=== PATIENT | female | born 1990 | race American Indian/Alaskan Native ===

== ENCOUNTER 2017-03-11 04:10 | Inpatient (IN) | payer MEDICAID ==
[2017-03-11] MEDS ORDERED: PITOCin/NS 20 UNIT/1000ML DRIP 20,000 MILLIUNITS/1,000 ML BAG IV ONE (04:38)
[2017-03-11] MEDS ORDERED: ePHEDrine SULFATE IV PRN (04:49)
[2017-03-11] MEDS ORDERED: MINERAL OIL PO PRN (04:49)
[2017-03-11] MEDS ORDERED: BRETHINE SUB-Q PRN (04:49)
[2017-03-11] MEDS ORDERED: BRETHINE IVP PRN (04:49)
[2017-03-11] MEDS ORDERED: XYLOCAINE 2% INFILTRATI ONE (04:49)
[2017-03-11] MEDS ORDERED: ZOFRAN IV PRN ×2 (04:49→04:57)
[2017-03-11] MEDS ORDERED: LANSINOH TP PRN (04:57)
[2017-03-11] MEDS ORDERED: PHENERGAN PR PRN (04:57)
[2017-03-11] MEDS ORDERED: DULCOLAX PR PRN (04:57)
[2017-03-11] MEDS ORDERED: TUCKS PAD TP PRN (04:57)
[2017-03-11] MEDS ORDERED: TYLENOL PO PRN (04:57)
[2017-03-11] MEDS ORDERED: MILK OF MAGNESIA PO PRN (04:57)
[2017-03-11] MEDS ORDERED: BENADRYL PO PRN (04:57)
[2017-03-11] MEDS ORDERED: PHENERGAN PO PRN (04:57)
[2017-03-11] MEDS ORDERED: PITOCin/NS 30 UNIT/500ML 30 UNITS/500 ML BAG IV SCH (05:00)
[2017-03-11] MEDS ORDERED: PITOCin/NS 20 UNIT/1000ML DRIP 20 UNITS/1,000 ML BAG IV SCH ×2 (05:00)
[2017-03-11] MEDS ORDERED: PITOCin/NS 20 UNIT/1000ML DRIP IV ONE (05:00)
[2017-03-11] MEDS ORDERED: SODIUM CHLORIDE FLUSH SYRINGE 10 ML IV NR (05:00)
[2017-03-11] MEDS ORDERED: LACTATED RINGERS 1,000 ML IV SCH (05:00)
--- NOTE | 2017-03-11 05:06 | History and Physical Report ---
History of Present Illness Date of examination: 03/11/17 Date of admission: 03/11/17 04:23 Chief complaint: Labor History of present illness: Pt is a 26yo BF EDC 03/21/17; EGA 38 4/7 weeks presents to L&D complaining of RUC's q 2-3 mins. Cx /V/0 She has not had any regular care and recently moved to [place]. Past History Past Medical History: no pertinent history Past Surgical History: no surgical history Family/Genetic History: none Social history: no significant social history, single - Obstetrical History Expected Date of Delivery: 03/21/17 Actual Gestation: 38 Week(s) 4 Day(s) Medications and Allergies Allergies Allergy/AdvReac Type Severity Reaction Status Date / Time No Known Drug Allergies Allergy Unknown Verified 03/11/17 05:05 Home Medications Medication Instructions Recorded Confirmed Last Taken Type No Known Home Medications [No 03/11/17 03/11/17 Unknown History Reported Home Medications] Active Meds: Active Medications Acetaminophen (Tylenol) 650 mg PO Q4H PRN PRN Reason: Pain MILD(1-3)/Fever >100.5/HANNAH Acetaminophen/Hydrocodone Bitart ([place] 5/325) 2 each PO Q6H PRN PRN Reason: Pain, Moderate (4-6) Bisacodyl (Dulcolax) 10 mg AL BID PRN PRN Reason: Constipation Diphenhydramine HCl (Benadryl) 25 mg PO Q6H PRN PRN Reason: Itching Diphtheria/Tetanus/Acell Pertussis (Boostrix) 0.5 ml IM .ONCE ONE Stop: 03/12/17 04:58 Docusate Sodium (Colace) 100 mg PO BID KATELYN Ephedrine Sulfate (Ephedrine Sulfate) 10 mg IV Q2M PRN PRN Reason: Hypotension Stop: 03/11/17 04:54 Ferrous Sulfate (Feosol) 325 mg PO BID KATELYN Lactated Ringer's (Lactated Ringers) 1,000 mls @ 125 mls/hr IV DIRECT KATELYN Oxytocin/Sodium Chloride (Pitocin/Ns 20 Unit/1000ml Drip) 20 units in 1,000 mls @ 125 mls/hr IV DIRECT KATELYN Oxytocin/Sodium Chloride (Pitocin/Ns 30 Unit/500ml) 30 units in 500 mls @ 1 mls /hr IV TITR KATELYN; 1 MILLIUNITS/MIN PRN Reason: Protocol Oxytocin/Sodium Chloride (Pitocin/Ns 20 Unit/1000ml Drip) 20 units in 1,000 mls @ 250 mls/hr IV DIRECT KATELYN Ibuprofen (Motrin) 600 mg PO Q6H KATELYN Lidocaine (Xylocaine 2%) 20 ml INFILTRATI ONCE ONE Stop: 03/11/17 04:50 Magnesium Hydroxide (Milk Of Magnesia) 30 ml PO HS PRN PRN Reason: Constipation Measles/Mumps/Rubella Vaccine Live (M-M-R Ii Vaccine) 0.5 ml SUB-Q .ONCE ONE Stop: 03/12/17 04:58 Mineral Oil (Mineral Oil) 30 ml PO QHS PRN PRN Reason: Constipation Multi-Ingredient Ointment (Lansinoh) 1 applic TP PRN PRN PRN Reason: Sore Nipples Multivitamins/Iron/Calcium ( Vitamin) 1 each PO QDAY KATELYN Ondansetron HCl (Zofran) 4 mg IV Q8H PRN PRN Reason: Nausea And Vomiting Ondansetron HCl (Zofran) 4 mg IV Q8H PRN PRN Reason: Nausea And Vomiting Promethazine HCl (Phenergan) 25 mg AL Q6H PRN PRN Reason: Nausea And Vomiting Promethazine HCl (Phenergan) 25 mg PO Q6H PRN PRN Reason: Nausea And Vomiting Sodium Chloride (Sodium Chloride Flush Syringe 10 Ml) 10 ml IV PRN NR Terbutaline Sulfate (Brethine) 0.25 mg SUB-Q ONCE PRN PRN Reason: Hyperstimulation/Hypertonicity Stop: 03/11/17 04:50 Terbutaline Sulfate (Brethine) 0.25 mg IVP ONCE PRN PRN Reason: Hyperstimulation/Hypertonicity Stop: 03/11/17 04:50 Witch Liberty/Glycerin (Tucks Pad) 1 each TP PRN PRN PRN Reason: Hemorrhoid/cleansing/soothing Review of Systems All systems: negative - Vital Signs Vital signs: Vital Signs Pulse Pulse Ox 92 H 100 03/11/17 04:30 03/11/17 04:30 Temp Pulse Resp BP Pulse Ox 92 H 138/83 81 L 03/11/17 04:53 03/11/17 04:53 03/11/17 04:37 - Physical Exam Cardiovascular: Regular rate Lungs: Positive: Clear to auscultation Abdomen: Positive: normal appearance Genitourinary (Female): Positive: normal external genitalia Vagina: Positive: normal moisture Uterus: Positive: enlarged Extremities: Positive: normal - Obstetrical FHR: category 1 Uterine Contraction Monitor Mode: External Cervical Dilatation: 10 Cervical Effacement Percentage: 100 station: +1 Uterine Contraction Pattern: Regular Uterine Tone Measurement Phase: Contraction Uterine Contraction Intensity: Strong/Firm Results Result Diagrams: 03/11/17 04:35 All other labs normal. Assessment and Plan - Patient Problems (1) 38 weeks gestation of Onset Date: 03/11/17 Current Visit: Yes Status: Acute Plan to address problem: A: IUP @ 38 4/7 weeks in labor No care Unknown GBS P: Admit to L&D for expectant vaginal delivery Obtain labs IV Ampicillin (2) No care in current in third trimester Onset Date: 03/11/17 Current Visit: Yes Status: Acute
--- NOTE | 2017-03-11 05:10 | Procedure Note ---
OB Delivery Note - Delivery Date of Delivery: 03/11/17 Surgeon: DEACON WALSH Estimated blood loss: 100cc - Vaginal Delivery presentation: vertex Delivery position: OA Intrapartum events: no care Delivery induction: none Delivery augmentation: rupture of membranes Delivery monitor: external FHT, external uterine Route of delivery: Delivery placenta: spontaneous Delivery cord: nuchal cord (x1), 3 umbilical vessels Episiotomy: none Delivery laceration: none Anesthesia: none Delivery comments: Infant delivered OA and placed on Mom's chest for [id number] bonding and delayed cord clamping. RT in attendance. - Infant A at 1 minute: 8 at 5 minutes: 9 Gender: Female ([id number])
[2017-03-11 05:19] LABS: Hematocrit 33.4 % (30.3-42.9); Hemoglobin 11.4 gm/dl (10.1-14.3); Mean Corpuscular HGB Conc 34 % (30-34); Mean Corpuscular Hemoglobin 32 pg (28-32); Mean Corpuscular Volume 94 fl (79-97); Platelet Count 156 K/mm3 (140-440); Red Blood Count 3.58 M/mm3 (3.65-5.03); Red Cell Distribution Width 14.1 % (13.2-15.2); White Blood Count 11.6 K/mm3 (4.5-11.0)
[2017-03-11] MEDS: MOTRIN PO SCH ×4 (05:28→23:19)
[2017-03-11 06:11] LABS: HIV-1 Antigen p24 Non React (Non React); HIVR-1/2 Ab Non React (Non React)
[2017-03-11] MEDS: NORCO 5/325 PO PRN ×3 (07:56→23:21)
[2017-03-11 08:28] LABS: Urine Drugs of Abuse Note Disclamer
[2017-03-11 08:40] LABS: Bilirubin,Urine NEG (Negative); Blood,Urine LG (Negative); Ketones,Urine NEG (Negative); Leukocyte Esterase,Urine SM (Negative); Nitrite,Urine NEG (Negative); RBC,Urine > 182.0 /HPF (0.0-6.0); Urobilinogen,Urine < 2.0 mg/dL (<2.0)
[2017-03-11] MEDS: FEOSOL PO SCH ×2 (12:05→23:19)
[2017-03-11] MEDS: COLACE PO SCH ×2 (12:06→23:19)
[2017-03-11] MEDS: PRENATAL VITAMIN PO SCH (12:06)
[2017-03-11 17:02] LABS: Hematocrit 29.4 % (30.3-42.9); Hemoglobin 9.9 gm/dl (10.1-14.3)
[2017-03-12] MEDS: MOTRIN PO SCH ×2 (05:44→13:19)
[2017-03-12] MEDS ORDERED: M-M-R II VACCINE SUB-Q ONE (06:00)
[2017-03-12] MEDS ORDERED: BOOSTRIX IM ONE (06:00)
[2017-03-12] MEDS: NORCO 5/325 PO PRN (13:19)
[2017-03-12] MEDS: FEOSOL PO SCH (13:19)
[2017-03-12] MEDS: COLACE PO SCH (13:19)
[2017-03-13] MEDS: NORCO 5/325 PO PRN ×2 (00:17→06:42)
[2017-03-13] MEDS: FEOSOL PO SCH ×2 (00:17→11:37)
[2017-03-13] MEDS: MOTRIN PO SCH ×3 (00:17→12:00)
[2017-03-13] MEDS: COLACE PO SCH ×2 (00:17→11:38)
--- NOTE | 2017-03-13 08:54 | Discharge Summary ---
Providers - Providers Date of Admission: 03/11/17 04:23 Date of discharge: 03/13/17 Attending physician: LUPE CULLEN MD 03/11/17 17:27 Consult to Case Management [CONS] Routine Services Needed at Discharge: Brick Stacker Notified:: andreas Additional Physician Instructions: pos uds Primary care physician: [facility] Reason for admission: active labor Delivery: Episiotomy: none Laceration: none complications: none Discharge diagnosis: IUP at term delivered [place] baby: female Condition at discharge: Good Disposition: DC-01 TO HOME OR SELFCARE Plan - Provider Discharge Summary Activity: routine, no sex for 6 weeks, no strenuous exercise Diet: routine Instructions: routine Additional instructions: [] Smoking cessation referral if applicable(refer to patient education folder for contact #) [] Refer to [facility] Booklet Call your doctor immediately for: * Fever > 100.5 * Heavy vaginal bleeding ( >1 pad per hour) * Severe persistent headache * Shortness of breath * Reddened, hot, painful area to leg or breast * Drainage or odor from incision. * Keep incision clean and dry at all times and follow doctor's instructions regarding bathing/showering - Follow up plan Follow up: [facility] [Provider Group] - 6 Weeks Forms: [facility] Discharge Summary, Discharge Signature Page
--- NOTE | 2017-03-13 08:54 | Progress Note ---
Assessment and Plan A:PPD #2 stable P: Discharge home today Subjective - Subjective Date of service: 03/13/17 Principal diagnosis: Patient reports: appetite normal [place]: doing well Objective - Vital Signs Latest vital signs: Vital Signs Temp Pulse Resp BP Pulse Ox 03/13/17 06:42 18 03/13/17 00:17 18 03/13/17 00:00 98.2 F 96 H 18 111/59 03/12/17 16:25 97.8 F 79 18 112/70 100 Intake and Output 03/12/17 03/13/17 03/13/17 22:59 06:59 14:59 Intake Total 240 240 Balance 240 240 Intake: Oral 240 240 Other: Total, Intake Amount 240 120 # Voids Void 1 1 - Exam Breasts: Present: deferred Cardiovascular: Present: Regular rate Lungs: Present: Clear to auscultation Abdomen: Present: soft Vulva: both: normal Uterus: Present: fundal height below umbilicus Extremities: Present: normal Deep Tendon Reflex Grade: Dull/Diminished +1 Incision: Present: intact
[2017-03-13] MEDS: PRENATAL VITAMIN PO SCH (11:38)
[2017-03-13 18:01] VITALS: BP 122/74
== END 2017-03-13 16:15 | disposition home or self-care (01) | DRG 775 ==
LOC: TRG 04:10 → LD 04:23 → OB 06:13
PROVIDERS: ADMIT Obstetrics & Gynecology; ATTEND Obstetrics & Gynecology
PROC: 10E0XZZ Delivery of Products of Conception, External Approach (ICD-10-PCS; principal; 2017-03-11)
PROC: 3E0234Z Introduction of Serum, Toxoid and Vaccine into Muscle, Percutaneous Approach (ICD-10-PCS; 2017-03-12)
DX: O69.81X0 Labor and delivery complicated by cord around neck, without compression, not applicable or unspecified (principal); Z3A.38 38 weeks gestation of pregnancy; Z37.0 Single live birth; Z23 Encounter for immunization
CPT/HCPCS: 36415; 80307; 81001; 85014; 85018; 85027; 86592; 86706; 86762; 86803; 86850; 86900; 86901; 87806; 90471; 90715; 99211; G0463; J2590